=== PATIENT | female | born 1990 | race Caucasian/White ===

== ENCOUNTER 2016-09-15 00:31 | Emergency (ER) ==
[2016-09-15 00:49] VITALS: BP 136/96
[2016-09-15] MEDS ORDERED: ROCEPHIN IM ONE (00:55)
[2016-09-15] MEDS ORDERED: XYLOCAINE-MPF 1% INJ ONE (00:55)
[2016-09-15] MEDS ORDERED: DECADRON IM ONE (01:03)
[2016-09-15] MEDS ORDERED: BENADRYL PO ONE (01:04)
--- NOTE | 2016-09-15 01:04 | PROVIDER DOCUMENTATION ---
HPI-EENT General <Placido Bruce - Last Filed: 09/15/16 01:05> - General Source: patient - History of Present Illness-EENT General EENT Location: reports: throat Quality of Pain: reports: aching Severity: reports: mild Onset/Duration: reports: this morning Timing: reports: still present <Gael Marie - Last Filed: 09/15/16 01:09> - General Chief Complaint: Sore Throat Stated Complaint: SORE THROAT Time Seen by Provider: 09/15/16 00:52 Allergies/Adverse Reactions: Patient Allergies Allergy/AdvReac Type Severity Reaction Status Date / Time amoxicillin [Amoxicillin] Allergy RASH Verified 01/19/13 13:26 - History of Present Illness-EENT General Nature of Presenting Problem: 26 y/o F present to the ED with a sore throat and white stuff in the back of her throat which all began today. Pt says her boyfirend had strep last week. Denies fever and cough. (Gael Marie) Review of Systems - Adult - REVIEW OF SYSTEMS - ADULT Constitutional: denies: chills, fever Eyes: reports: no symptoms reported Ears, Nose, Mouth & Throat: reports: throat pain. denies: sinus problem Cardiovascular: reports: no symptoms reported Respiratory: denies: cough, shortness of breath, wheezing Gastrointestinal: reports: no symptoms reported Genitourinary: reports: no symptoms reported Musculoskeletal: reports: no symptoms reported Integumentary: reports: no symptoms reported Neurological: reports: no symptoms reported Psychiatric: reports: no symptoms reported Endocrine: reports: no symptoms reported Hematologic/Lymphatic: reports: no symptoms reported Allergic/Immunologic: reports: no symptoms reported All Other Systems: Reviewed and Negative <Gael Marie - Last Filed: 09/15/16 01:09> Past History - Adult - PAST MEDICAL HISTORY-ADULT Review of Records: reports: Old Records Reviewed, Nursing Assessment Review, Medications Reviewed - SOCIAL HISTORY Smoking: cigarettes, greater than 1 pack/day Provider spent 3-5 mins advising pt. on dangers of tobacco.: Discussed manners to quit use, and f/u contacts for add'l counseling. Living Situation: family <Gael Marie - Last Filed: 09/15/16 01:09> Physical Exam- EENT - Physical Exam EENT Initial Vital Signs Reviewed: Yes General Appearance: appears well, alert, no apparent distress Eye Exam: bilateral eye: normal inspection, PERRL, EOMI Ear Exam: bilateral ear: auricle normal, canal normal, TM normal Nasal Exam: normal inspection. negative: active bleeding Throat Exam: pharynx swelling, pharynx tenderness, tonsillar exudate Neck: non-tender, full range of motion, supple, normal inspection Respiratory: lungs clear, normal breath sounds, no pleuratic chest pain, no respiratory distress, no accessory muscle use Cardiovascular: normal peripheral pulses, regular rate, rhythm Abdominal Exam: normal bowel sounds, non tender, soft Back Exam: normal inspection, no CVA tenderness, no vertebral tenderness Extremity: normal range of motion, non-tender, normal gait, normal inspection Integumentary: normal color, normal turgor, warm/dry Neurologic: grossly normal, no motor/sensory deficits Psych/Mental Status: normal mood/affect, normal thought content, normal thought process, oriented x 3 <Gael Marie - Last Filed: 09/15/16 01:09> Progress <Placido Bruce - Last Filed: 09/15/16 01:05> <Gael Marie - Last Filed: 09/15/16 01:09> - PLAN OF CARE/RESULTS Progress/Plan/Lab Results: Orders Category Date Time Status DIRECT STREP PL Stat Lab 09/15/16 00:42 Completed TEST-URINE [PREG] Stat Lab 09/15/16 01:03 Uncollected CefTRIAXONE [Rocephin] Med 09/15/16 00:55 Discontinued 1 gm IM NOW ONE Dexamethasone [Decadron] Med 09/15/16 01:03 Discontinued 10 mg IM NOW ONE Diphenhydramine [Benadryl] Med 09/15/16 01:04 Discontinued 25 mg PO NOW ONE Lidocaine 1% Pf [Xylocaine-Mpf 1%] Med 09/15/16 00:55 Discontinued 5 ml INJ NOW ONE Vital Signs Temp Pulse Resp BP Pulse Ox 09/15/16 00:44 98.7 F 82 18 136/96 100 amoxicillin [Amoxicillin] Allergy (Verified 01/19/13 13:26) RASH Azithromycin [Zithromax Z-Dieudonne] 250 mg PO DIRECTED #1 pkg 09/15/16 Ibuprofen [Motrin] 800 mg PO Q8H PRN PRN #20 tablet 09/15/16 Methylprednisolone [Medrol Dosepak] 4 mg PO DIRECTED #1 package 09/15/16 Omeprazole [Prilosec] 20 mg PO DAILY@0700 #20 capsule 09/15/16 Laboratory 09/15/16 00:42 Group A Strep Rapid NEGATIVE (Gael Marie) Departure - Departure Time of Disposition Order: 01:05 Certified Medical Emergency: Emergent <Placido Bruce - Last Filed: 09/15/16 01:05> - Departure Time of Disposition Order: 01:07 Certified Medical Emergency: Emergent <Gael Marie - Last Filed: 09/15/16 01:09> - Departure DIAGNOSIS: Pharyngitis Qualifiers: Pharyngitis/tonsillitis etiology: unspecified etiology Qualified Code(s): J02.9 - Acute pharyngitis, unspecified Disposition: HOME 01 Condition: Stable Additional Instructions: ED Follow Up Instructions: You have been treated by a care provider in the Emergency Department. These instructions are being provided to you so you can have an understanding of how to care for yourself upon discharge. Upon discharge from the Emergency Department, you are responsible for making arrangements for follow-up care by a physician of your choice. Take all prescribed medications as directed. Return to the Emergency Department immediately for any new or worsening symptoms. You may call the Physician Referral phone number at [phone] to obtain a list of Physicians who are taking new patients. Prescriptions: Methylprednisolone [Medrol Dosepak] 4 mg PO DIRECTED #1 package Ibuprofen [Motrin] 800 mg PO Q8H PRN PRN #20 tablet PRN Reason: inflammation Omeprazole [Prilosec] 20 mg PO DAILY@0700 #20 capsule Azithromycin [Zithromax Z-Dieudonne] 250 mg PO DIRECTED #1 pkg Referrals: None,PCP [Primary Care Provider] - Attestation - Physician/ Mid-level Attestation Patient care was provided by Mid-level provider (FUR DYER/PA):: Yes Mid-level provider:: Placido Bruce Mid-level documentation review:: The Mid-level provider documentation, treatment plan and medical decision making was reviewed by the physician who agrees with all treatment and medical decision making by the MLP. <Placido Bruce - Last Filed: 09/15/16 01:05> Physician Attestation
== END 2016-09-15 01:41 | disposition home or self-care (01) ==
LOC: P.ED 00:31
DX: J02.9 Acute pharyngitis, unspecified (principal); F17.210 Nicotine dependence, cigarettes, uncomplicated; Z71.6 Tobacco abuse counseling
CPT/HCPCS: 81025; 87081; 87430; 96372; J0696; J1100